=== PATIENT | female | born 1965 | race Caucasian/White ===

== ENCOUNTER 2020-11-07 15:57 | Emergency (ER) | payer SELFPAY ==
--- OUTSIDE RECORDS SUMMARY | 2020-11-07 15:59 | XMS REPORT | Encounter Summary ---
:1965 Author Care Team Providers Name Role Phone Marion Mayorga MD Primary Care Provider [phone] Reason for Visit New Patient Instructions 1. Cholelithiasis without obstru ction Ultram 50 mg tablet Zofran 4 mg tablet Discussion Note: None recorded.Patient educational handouts: No information available. Plan of Care Reminders Provider Appointments None recorded. Lab None recorded. Referral None recorded. Procedures None recorded. Surgeries None recorded. Imaging None recorded. Medications Name Start Date Ultram 50 mg tablet Take 1 tablet every 6 hours by oral route as needed f or pain. Zofran 4 mg tablet Take 1 tablet every 6 hours by oral route as needed f or nausea and vomiting. Medications Administered None recorded. Vitals Height Weight BMI Blood Pressure 5 ft 6 in 202.2 lbs 32.6 kg/m2 128/76 mm[Hg] Results Lab Results None recorded. Allergies Code Code System Name Reaction Severity Status Onset NKDA Problems No Known Problems Procedures Date Name Performed by Tonsillectomy Information not avai lable Hysterectomy Information not avai lable Vaccine List None recorded. Social History Tobacco Smoking Status Never Smoker Past Encounters Encounter Date Diagnosis Provider 10/22/2020 Cholelithiasis without Angelito Kale mota MD: Obstruction [address] [facility] [address], [place] [address], Ph. [phone] History of Present Illness Note: cc: ruq pain<div>HPI: 55 yo female with ruq pain for 2 yrs. Had sono and showed gallstones. reports lopez stools</div><div>pmh: neg</div><div>psh: hyst, left ankle</d iv><div>nkda</div><div>tob neg</div><div>etoh neg</div><div>ros ow neg</div><div>
</div><div>Laparoscopic cholecystectomy

Discussed and illustrated foregut and biliary anatomy. Reviewed function of the gallbladder and relationship to digestion of foods. Reviewed signs and symptoms of gallbladder dysfunction and gallstones. Reviewed workup to include ultrasound and/or HIDA. Risks of gallstone disease, including retained stones and pancreatitis reviewed. Discussed surgical therapy for gallbladder disease.Reviewed incisions, hospital stay, pain, typical postoperative recovery course, activity and drivingrestrictions and dietary modifications. Reviewed risks of surgical procedure including bleeding, infe ctions, leak of biliary fluid, injury to bile ducts within the liver and outside of the liver, need for longer hospital stay or other procedures including ERCP for retained stones or bile duct injury or leak. Discussed risk of an open procedure. Pt verbalized understanding of procedure and risks, and all questions were answered to the patient's satisfaction

</div> Review of Systems General Surgery ROS Reported By: Patient Constitutional: Constitutional: no fever, no night sweats, no significant weight gain, no significant weight loss, no exercise intolerance Eyes: Eyes: no dry eyes, no irrita tion, no vision change ENMT: Ears: no difficulty hearing, no ear pain. Nose: no frequent nosebleeds, no nose/sinus pr oblems. Mouth/Throat: no sore throat, no bleeding gums, no snoring , no dry mouth, no mouth ulcers, no oral abnormalities, no teeth problems, No Post Nasal Dripping, Constantly clearing the thro at, hiccups, itching throat, (normal) weak voice: constant Respiratory: Respiratory: no cough, no wh eezing, no shortness of breath, no coughing up blood Cardiovascular: Cardiovascular: no chest tawana n, no arm pain on exertion, no shortness of breath when wal manuel, no shortness of breath when lying down, no palpitations, no kn own heart murmur Gastrointestinal: Gastrointestinal: no abdomin al pain, no vomiting, normal appetite, no diarrhea, not vomiting bl ood Genitourinary: Genitourinary: no incontinen ce, no difficulty urinating, no hematuria, no increased freq uency Musculoskeletal: Musculoskeletal: no muscle a ches, no muscle weakness, no arthralgias/joint pain, no b ack pain, no swelling in the extremities Integumentary: Skin: no abnormal mole, no j aundice, no rashes Neurologic: Neurologic: no loss of consc iousness, no weakness, no numbness, no seizures, no dizziness, no h eadaches Physical Exam Pre-Op Exam Reported By: Patient Constitutional: General Appearance: healthy- appearing, well-nourished, well-developed Psychiatric: Orientation: to time, to flavio ce, to person Skin: Inspection and palpation: no rash, no lesions, no induration Eyes: Pupils: PERRLA. EOM: EOMI ENMT: Lips, Teeth, and Gums: cristofer l dentition Neck: Neck: supple, FROM Lungs: Auscultation: breath sounds normal, CTA except as noted, no wheezing, no rales/crackles, no rhonchi Cardiovascular: Heart Auscultation: RRR, no murmurs, no rubs, no gallops. Neck vessels: no carotid bruits. Pulses including femoral / pedal: normal throughout Abdomen: Bowel Sounds: normal. Inspec tion and Palpation: soft, non-distended, no tenderness (no guarding, no rebound), no masses, no CVA tenderness. Liver: no n-tender, no hepatomegaly. Spleen: non-tender, no splenomegaly Back: Thoracolumbar Appearance: no rmal curvature Musculoskeletal:: Joints, Bones, and Muscles: normal movement of all extremities, no malalignment, no tenderness. Extremities: no cyanosis, no edema, no varicosities Neurologic: Gait and Station: normal gai t, normal station. Cranial Nerves: grossly intact. Sensation: g rossly intact. Reflexes: DTRs 2+ bilaterally throughout
[2020-11-07 16:56] LABS: Absolute Lymphocytes (CBC) 2.4 K/uL (0.7-4.9); Basophils % 0.7 % (0-1.3); Hematocrit 41.6 % (36.0-45.0); MPV 8.8 fL (7.6-11.3); RBC Red Blood Cell Count 4.98 M/uL (3.86-4.86)
[2020-11-07] MEDS ORDERED: DICYCLOMINE HCL 10 MG CAP ONE (17:03)
[2020-11-07] MEDS ORDERED: ONDANSETRON 4 MG/2 ML VIAL ONE (17:03)
[2020-11-07 17:11] LABS: Albumin 3.9 g/dL (3.4-5.0); Bilirubin Direct 0.2 mg/dL (0-0.2); Bilirubin Total 0.7 mg/dL (0.2-1.0); Potassium 3.8 mmol/L (3.5-5.1); Protein, Total 7.5 g/dL (6.4-8.2)
--- NOTE | 2020-11-07 18:04 | RAD REPORT ---
EXAM DESCRIPTION: US - Abdomen Exam Limited - 11/07/2020 5:47 pm CLINICAL HISTORY: abdominal pain COMPARISON: No comparisons FINDINGS: Two large 2 cm sized gallstones are present in the fundus of the gallbladder. Sludge is al so present. Gallbladder is partially contracted. There is no wall thickening or pericholecystic fluid . No common duct stone or biliary tree dilatation identified. IMPRESSION: Multi stone cholelithiasis and gallbladder sludge. No wall thickening, pericholecystic fluid or other findings for measurable acute cholecystitis. No duct stone or biliary tree abnormality.
--- NOTE | 2020-11-07 18:14 | RAD REPORT ---
EXAM DESCRIPTION: CT - Abdomen Pelvis W Contrast - 11/07/2020 6:04 pm CLINICAL HISTORY: ABD PAIN COMPARISON: Abdomen Exam Limited dated 11/07/2020 TECHNIQUE: Biphasic, helical CT imaging of the abdomen and pelvis was performed following 100 ml non -ionic IV contrast. No oral contrast. All CT scans are performed using dose optimization technique as appropriate and may include automated exposure control or mA/KV adjustment according to patient size. FINDINGS: No suspicious findings in the lung bases. The liver, spleen, and pancreas show no suspicious findings. Cholelithiasis is present. Gallbladder i s only partially filled. No wall thickening or pericholecystic fluid seen. No biliary tree dilatation identified. Duct stones can be occult on CT imaging. Symmetric renal function is seen with no hydronephrosis or suspicious renal mass. No pyelonephritis o r acute parenchymal process. No bladder abnormalities. No adrenal abnormalities. Uterus is absent. Ov cheri are normal size. No adnexal abnormalities. No dilated bowel loops or bowel wall thickening. No evidence for appendicitis or other active bowel p rocess. No free air, free fluid or inflammatory stranding. No hernia, mass or bulky lymphadenopathy. No suspicious bony findings. IMPRESSION: Cholelithiasis without wall thickening or pericholecystic fluid. No biliary tree abnorma lity. No acute GI, or FIXTURE DESIGNER process noted. Uterus is absent.
--- NOTE | 2020-11-07 18:51 | ER ---
Nurse's Notes [facility] Name: Zabrina Hylton Age: 55 yrs Sex: Female : 1965 Arrival Date: 11/07/2020 Time: 16:00 Bed 16 Private MD: Diagnosis: Cholelithiasis Presentation: 11/07 16:09 Chief complaint: Patient states: has a bad gallbladder and was told she needed it out iw about a year ago but she didn;t have insurance , has been having RUQ pain under her ribs for past two days. Coronavirus screen: At this time, the client does not indicate any symptoms associated with coronavirus-19. Ebola Screen: Patient negative for fever greater than or equal to 101.5 degrees Fahrenheit, and additional compatible Ebola Virus Disease symptoms Patient denies exposure to infectious person. Patient denies travel to an Ebola-affected area in the 21 days before illness onset. No symptoms or risks identified at this time. Initial Sepsis Screen: Does the patient meet any 2 criteria? No. Patient's initial sepsis screen is negative. Does the patient have a suspected source of infection? No. Patient's initial sepsis screen is negative. Risk Assessment: Do you want to hurt yourself or someone else? Patient reports no desire to harm self or others. Onset of symptoms was November 05, 2020. 16:09 Method Of Arrival: Ambulatory iw 16:09 Acuity: TARIQ 3 iw Historical: - Allergies: 16:11 No Known Allergies; iw - Home Meds: 16:11 None [Active]; iw - PMHx: 16:11 None; iw - PSHx: 16:11 Hysterectomy; iw - Immunization history:: Adult Immunizations not up to date. - Social history:: Smoking status: Patient denies any tobacco usage or history of. Screenin:02 Abuse screen: Denies threats or abuse. Denies injuries from another. Nutritional zb screening: No deficits noted. Tuberculosis screening: No symptoms or risk factors identified. Fall Risk None identified. Assessment: 16:30 General: Appears in no apparent distress. uncomfortable, Behavior is calm, cooperative, zb appropriate for age. Pain: Complains of pain in back and right upper quadrant Pain radiates to back Pain currently is 5 out of 10 on a pain scale. Quality of pain is described as aching, pressure, Pain began 2-3 days ago. Is continuous, Alleviated by. Neuro: Level of Consciousness is awake, alert, obeys commands, Oriented to person, place, time, situation. Cardiovascular: Heart tones S1 S2 present Capillary refill < 3 seconds in bilateral fingers Patient's skin is warm and dry. Pulses are all present. Respiratory: Airway is patent Respiratory effort is even, unlabored, Respiratory pattern is regular, symmetrical, Breath sounds are clear bilaterally. GI: Abdomen is round non-distended, Bowel sounds present X 4 quads. Abd is soft and non tender X 4 quads. Hepatomegaly noted Reports upper abdominal pain, nausea, small thin, regulo colored stools. : No signs and/or symptoms were reported regarding the genitourinary system. EENT: No signs and/or symptoms were reported regarding the EENT system. Derm: Skin is intact, is healthy with good turgor, Skin is dry, Skin is normal, Skin temperature is warm. Musculoskeletal: Circulation, motion, and sensation intact. Capillary refill < 3 seconds, in bilateral fingers. Range of motion: intact in all extremities. 17:30 Reassessment: Patient appears in no apparent distress at this time. Patient and/or zb family updated on plan of care and expected duration. Pain level reassessed. Patient is alert, oriented x 3, equal unlabored respirations, skin warm/dry/pink. US at bedside. pt awaiting results. 18:30 Reassessment: ECP at bedside explaining POC. zb 19:00 Reassessment: pt up ad chrystal. d/c instruction given. gait steady and even. zb Vital Signs: 16:09 BP 161 / 104; Pulse 62; Resp 16; Pulse Ox 100% on R/A; Weight 88 kg; Height 5 ft. 6 in. iw (167.64 cm); Pain 6/10; 16:57 BP 117 / 79; Pulse 65; Resp 16; Pulse Ox 100% on R/A; zb 17:30 BP 135 / 103; Pulse 77; Resp 16; Pulse Ox 100% on R/A; zb 18:30 BP 123 / 73; Pulse 58; Resp 16; Pulse Ox 99% on R/A; zb 16:09 Body Mass Index 31.31 (88.00 kg, 167.64 cm) ED Course: 16:00 Patient arrived in ED. ag5 16:11 Triage completed. iw 16:12 Arm band placed on. iw 16:13 Gerardo Toledo PA is PHCP. [facility] 16:13 Meng Jimenez MD is Attending Physician. m 16:13 Vanda Johnson, RN is Primary Nurse. zb 16:45 Inserted saline lock: 20 gauge in left antecubital area, using aseptic technique. Blood zb collected. 17:03 Patient has correct armband on for positive identification. Pulse ox on. NIBP on. Door zb closed. Noise minimized. Warm blanket given. 17:47 US Abdomen Limited In Process Unspecified. EDMS 18:04 CT Abd/Pelvis - IV Contrast Only In Process Unspecified. EDMS 18:50 Artie Pena MD is Referral Physician. [facility] 19:00 No provider procedures requiring assistance completed. IV discontinued, intact, zb bleeding controlled, No redness/swelling at site. Pressure dressing applied. Administered Medications: 16:52 Drug: Bentyl 20 mg Route: PO; zb 17:52 Follow up: Response: No adverse reaction; Marked relief of symptoms zb 16:52 Drug: Zofran (Ondansetron) 4 mg Route: IVP; Site: right antecubital; zb 17:52 Follow up: Response: No adverse reaction; Marked relief of symptoms zb Outcome: 18:50 Discharge ordered by MD. m 19:00 Discharged to home ambulatory. zb 19:00 Condition: stable 19:00 Discharge instructions given to patient, Instructed on discharge instructions, follow up and referral plans. medication usage, Demonstrated understanding of instructions, follow-up care, medications, Prescriptions given X 2. 19:18 Patient left the ED. zb Signatures: Dispatcher [employer] EDNM Gerardo Toledo PA PA jmm Williams, Irene, RN RN Elier Carroll ag5 Vanda Johnson, ROLY RN zb Corrections: (The following items were deleted from the chart) 19:39 19:36 Reassessment: Patient appears in no apparent distress at this time. family at zb bedside explain to patient she will need to be swabbed for covid. Patient denies pain at this time. zb
--- NOTE | 2020-11-07 18:51 | EDPHYS ---
Physician Documentation [facility] Name: Zabrina Hylton Age: 55 yrs Sex: Female : 1965 Arrival Date: 11/07/2020 Time: 16:00 Bed 16 Private MD: ED Physician Meng Jimenez HPI: 11/07 16:30 This 55 yrs old Female presents to ER via Ambulatory with complaints of jmm Abdominal Pain, Back Pain. 16:30 The patient presents with abdominal pain in the epigastric area. Onset: The jmm symptoms/episode began/occurred gradually, 2 day(s) ago. The symptoms radiate to right back. Associated signs and symptoms: Pertinent positives: regulo stools. The symptoms are described as achy, sharp. Modifying factors: The symptoms are alleviated by nothing, the symptoms are aggravated by nothing. This is a 55 year old female with no chronic medical conditions that presents ot the ED with complaints of right upper abdominal pain after eating 2 days ago. Patient states she has been previously diagnosed with gallstones. Denies fever, lower abdominal pain. Historical: - Allergies: 16:11 No Known Allergies; iw - Home Meds: 16:11 None [Active]; iw - PMHx: 16:11 None; iw - PSHx: 16:11 Hysterectomy; iw - Immunization history:: Adult Immunizations not up to date. - Social history:: Smoking status: Patient denies any tobacco usage or history of. ROS: 16:30 Constitutional: Negative for fever, chills, and weight loss, Cardiovascular: Negative jmm for chest pain, palpitations, and edema, Respiratory: Negative for shortness of breath, cough, wheezing, and pleuritic chest pain. 16:30 Abdomen/GI: Positive for abdominal pain. 16:30 All other systems are negative. Exam: 16:30 Constitutional: This is a well developed, well nourished patient who is awake, alert, jmm and in no acute distress. Head/Face: atraumatic. Eyes: EOMI, no conjunctival erythema appreciated ENT: Moist Mucus Membranes Neck: Trachea midline, Supple Chest/axilla: Normal chest wall appearance and motion. Cardiovascular: Regular rate and rhythm. No edema appreciated Respiratory: Normal respirations, no respiratory distress appreciated Abdomen/GI: Non distended, soft Back: Normal ROM Skin: General appearance color normal MS/ Extremity: Moves all extremities, no obvious deformities appreciated, no edema noted to the lower extremities Neuro: Awake and alert, normal gait Psych: Behavior is normal, Mood is normal, Patient is cooperative and pleasant 16:30 Abdomen/GI: Inspection: abdomen appears normal, Bowel sounds: normal, Palpation: mild abdominal tenderness, in the right upper quadrant. Vital Signs: 16:09 BP 161 / 104; Pulse 62; Resp 16; Pulse Ox 100% on R/A; Weight 88 kg; Height 5 ft. 6 in. iw (167.64 cm); Pain 6/10; 16:57 BP 117 / 79; Pulse 65; Resp 16; Pulse Ox 100% on R/A; zb 17:30 BP 135 / 103; Pulse 77; Resp 16; Pulse Ox 100% on R/A; zb 18:30 BP 123 / 73; Pulse 58; Resp 16; Pulse Ox 99% on R/A; zb 16:09 Body Mass Index 31.31 (88.00 kg, 167.64 cm) iw MDM: 16:30 Patient medically screened. [facility] 18:47 Data reviewed: vital signs, nurses notes. Counseling: I had a detailed discussion with george the patient and/or guardian regarding: the historical points, exam findings, and any diagnostic results supporting the discharge/admit diagnosis, lab results, radiology results, the need for outpatient follow up, to return to the emergency department if symptoms worsen or persist or if there are any questions or concerns that arise at home. ED course: Patient is alert and non toxic in appearance in the ED. Pain is relieved in the ED. Patient is advised to follow up with general surgery and otherwise given strict return precautions. Patient understood and agrees with the plan of care . 11/07 16:32 Order name: Basic Metabolic Panel [facility] 11/07 16:32 Order name: CBC with Diff [facility] 11/07 16:32 Order name: Hepatic Function; Complete Time: 17:19 [facility] 11/07 16:32 Order name: Lipase; Complete Time: 17:19 [facility] 11/07 16:32 Order name: Basic Metabolic Panel; Complete Time: 17:19 [facility] 11/07 16:32 Order name: CBC with Automated Diff; Complete Time: 17:03 [facility] 11/07 16:32 Order name: IV Saline Lock; Complete Time: 16:48 [facility] 11/07 16:32 Order name: Labs collected and sent; Complete Time: 16:48 [facility] 11/07 16:32 Order name: US Abdomen Limited; Complete Time: 18:05 [facility] 11/07 16:32 Order name: CT Abd/Pelvis - IV Contrast Only; Complete Time: 18:18 [facility] Administered Medications: 16:52 Drug: Bentyl 20 mg Route: PO; zb 17:52 Follow up: Response: No adverse reaction; Marked relief of symptoms zb 16:52 Drug: Zofran (Ondansetron) 4 mg Route: IVP; Site: right antecubital; zb 17:52 Follow up: Response: No adverse reaction; Marked relief of symptoms zb Disposition: 11/08 07:00 Co-signature as Attending Physician, Meng Jimenez MD. rn Disposition: 11/07/20 18:50 Discharged to Home. Impression: Cholelithiasis. - Condition is Stable. - Discharge Instructions: Cholelithiasis. - Prescriptions for Bentyl 20 mg Oral Tablet - take 2 tablet by ORAL route every 6 hours As needed; 40 tablet. Zofran 4 mg Oral Tablet - take 1 tablet by ORAL route every 12 hours As needed; 20 tablet. - Medication Reconciliation Form, Thank You Letter, Antibiotic Education, Prescription Opioid Use form. - Follow up: Artie Pena MD; When: 2 - 3 days; Reason: Recheck today's complaints, Continuance of care, Re-evaluation by your physician. Signatures: Dispatcher [employer] EDMS Gerardo Toledo PA PA Sera Espitia RN RN iw Nieto, Roman, MD MD rn Brown, Zipporah, RN RN zb Corrections: (The following items were deleted from the chart) 11/07 19:18 18:50 11/07/2020 18:50 Discharged to Home. Impression: Cholelithiasis. Condition is zb Stable. Forms are Medication Reconciliation Form, Thank You Letter, Antibiotic Education, Prescription Opioid Use. Follow up: Artie Pena; When: 2 - 3 days; Reason: Recheck today's complaints, Continuance of care, Re-evaluation by your physician. [facility]
[2020-11-07 19:27] VITALS: BP 123/73; O2SAT 99
== END 2020-11-07 19:18 | disposition home or self-care (01) ==
LOC: ER 15:57
DX: K80.20 Calculus of gallbladder without cholecystitis without obstruction (principal)
CPT/HCPCS: 36415; 74177; 76705; 80048; 80076; 83690; 85025; 96374; 99284; J2405; Q9967